=== PATIENT | female | born 1990 | race Caucasian/White ===

== ENCOUNTER 2020-09-24 10:22 | Day surgery (SDC) | payer OTHER, SELFPAY ==
--- NOTE | ~2020-09-24 | FL_ITS ---
PROCEDURE: XR LUMBAR PUNCTURE CLINICAL INFORMATION: Pseudotumor cerebri. COMPARISON: None TECHNIQUE: Following explaining fluoroscopy-guided lumbar puncture procedure, benefits and risk patient was placed prone on fluoroscopy table and low back area was cleaned and draped in usual sterile manner. 1% lidocaine was injected at puncture site. A 20-gauge 6 inch needle was then inserted from a left-sided approach intrathecally at the L3-L4 disc level. After observing CSF return patient was quickly placed in left lateral decubitus view and opening pressure was obtained. Subsequently CSF was collected in 4 test tubes. Postprocedure stylet was reintroduced and needle withdrawn. Complete hemostasis achieved at puncture site. Patient tolerated procedure extremely well. Simple Band-Aid applied postprocedure. FINDINGS: On 2 images obtained through the lumbar spine there is maintained lumbar lordosis. The vertebral heights, alignment and disc heights are normal. No visible acute fracture, dislocation or lytic process seen. The opening CSF pressure measured 31 mL of water. Approximately 19 mL of clear CSF fluid was collected in 4 test tubes. Initially the fluid was hemorrhagic and cleared by the last image. FLUOROSCOPY TIME: 0.3 minutes. DOSE AREA PRODUCT: 6.007 uGy-m2 (microgray-meter squared). FL/FL guided lumbar puncture LP IMPRESSION: Successful fluoroscopy-guided lumbar puncture performed. Opening CSF pressure measured 31 cm of water.
[2020-09-24 09:53] VITALS: BMI 41.5
[2020-09-24 09:59] LABS: MANUAL DIFF FLAG NO
[2020-09-24 10:01] LABS: Basophils Percent Auto 0.3 % (0-2); Eosinophils Absolute Auto 0.1 X10*3/uL (0.0-0.4); Eosinophils Percent Auto 1.6 % (0-4); Imm Gran Abs Auto 0.01 X10*3/uL (0.00-0.03); Imm Gran Pct Auto 0.1 % (0.0-0.4); Lymphocytes Absolute Auto 2.7 X10*3/uL (1.2-4.9); Lymphocytes Percent Auto 35.9 % (20-40); Mean Corpuscular HGB Conc 34.1 g/dl (31.0-35.0); Mean Corpuscular Hemoglobin 28.7 pg (27.0-33.0); Mean Corpuscular Volume 84.2 fL (80-98); Mean Platelet Volume 9.9 fL (9.4-12.3); Monocytes Absolute Auto 0.3 X10*3/uL (0.1-1.2); Monocytes Percent Auto 4.5 % (2-11); Neutrophils Absolute Auto 4.3 X10*3/uL (2.0-8.3); Neutrophils Percent Auto 57.6 % (45-73); Platelet Count 236 X10*3/uL (160-400); Red Blood Count 4.87 X10*6/uL (4.20-5.50); Red Cell Distribution Width 12.3 % (11.0-16.0); White Blood Count 7.4 X10*3/uL (4.8-10.8)
[2020-09-24 10:08] LABS: Prothrombin Time 11.7 SEC (9.9-13.0)
[2020-09-24 10:11] LABS: Partial Thromboplastin Time 35.3 SEC (24.1-38.0)
[2020-09-24 10:52] LABS: UPreg QC Valid YES
[2020-09-24 10:53] LABS: Urine Pregnancy NEGATIVE (NEGATIVE)
[2020-09-24 12:14] VITALS: BP 121/73; PULSE 79; RESP 18; O2SAT 99
[2020-09-24 12:44] VITALS: BP 120/74; PULSE 77; RESP 18; O2SAT 100
[2020-09-24 13:15] VITALS: BP 112/70; PULSE 77; RESP 18; O2SAT 100
[2020-09-24] MEDS: Acetaminophen Oral Liquid 650 MG/20.3 ML SOLUTION 975 MG PO (13:15)
[2020-09-24 13:20] LABS: CSF Tube # 1
[2020-09-24 13:21] LABS: CSF Appearance Bloody
[2020-09-24 13:30] LABS: Glucose CSF 57 mg/dL; Total Protein CSF 51.5 mg/dL (15-45)
[2020-09-24 13:44] VITALS: BP 117/74; PULSE 85; RESP 20; O2SAT 100
[2020-09-24 13:59] LABS: Appearance CSF HAZY; CSF Tube # 4; Color CSF COLORLESS; Neutrophils CSF 4 %; Red Blood Cell CSF 697 MM*3; White Blood Cell CSF 2 MM*3
[2020-09-24 14:00] LABS: CSF Monos 20 %; Lymphocytes CSF 76 %
[2020-09-24 14:42] VITALS: BP 124/78; PULSE 79; RESP 18; TEMP 36.8; O2SAT 100
== END 2020-09-24 15:14 | disposition home or self-care (01) ==
PROVIDERS: Psychiatry & Neurology Neurology; Visit Provider Radiology Diagnostic Radiology
PROC: 009U3ZZ Drainage of Spinal Canal, Percutaneous Approach (ICD-10-PCS; CPT 62270; principal; 2020-09-24 11:00)
DX: G93.2 Benign intracranial hypertension (principal); G43.909 Migraine, unspecified, not intractable, without status migrainosus; H53.8 Other visual disturbances; F41.9 Anxiety disorder, unspecified; F90.9 Attention-deficit hyperactivity disorder, unspecified type; Z79.899 Other long term (current) drug therapy; Z88.2 Allergy status to sulfonamides; Z91.040 Latex allergy status; Z88.8 Allergy status to other drugs, medicaments and biological substances
CPT/HCPCS: 36415; 62328; 81025; 82945; 84157; 85025; 85610; 85730; 87015; 87070; 87205; 89051

== ENCOUNTER 2021-01-12 09:26 | Day surgery (SDC) | payer OTHER, SELFPAY ==
--- NOTE | ~2021-01-12 | FL_ITS ---
EXAMINATION: XR LUMBAR PUNCTURE CLINICAL INFORMATION: Pseudotumor cerebri. COMPARISON: Fluoroscopy-guided lumbar puncture 09/24/2020. TECHNIQUE: Following explaining fluoroscopy-guided lumbar puncture procedure, benefits and risks, a written consent was obtained. Patient was placed prone on fluoroscopy table and low back area was cleaned and draped in the usual sterile manner after placing a marker at the L3-L4 disc level. 1% lidocaine was injected at the puncture site. A 20-gauge 6 inch long needle was inserted from the skin intrathecally at the L3-L4 disc level. After observing fluid return, patient was quickly placed into a left lateral decubitus view and opening CSF pressure was obtained. Subsequently fluid was collected in 4 test tubes and sent to lab. The stylet was reintroduced and needle withdrawn. Complete hemostasis was achieved at the puncture site. Sterile Band-Aid was applied postprocedure. Patient tolerated procedure extremely well. FINDINGS: 2 images of lumbar spine were obtained and reveal normal vertebral heights and alignment. The disc heights are normal. The opening CSF pressure was high and measured 29 cm of water. Approximately 16 mL of clear CSF fluid was obtained. FLUOROSCOPY TIME: 0.3 minutes. DOSE AREA PRODUCT: 21.5 uGy-m2 (microgray-meter squared). IMAGES: 2. FL/FL guided lumbar puncture LP IMPRESSION: Successful fluoroscopy-guided lumbar puncture performed with elevated CSF pressure of 29 cm of water.
[2021-01-12 10:56] VITALS: BMI 41.5
[2021-01-12 11:01] LABS: MANUAL DIFF FLAG NO
[2021-01-12 11:05] LABS: Basophils Percent Auto 0.3 % (0-2); Eosinophils Absolute Auto 0.1 X10*3/uL (0.0-0.4); Eosinophils Percent Auto 0.7 % (0-4); Hematocrit 43.1 % (37-47); Hemoglobin 14.8 g/dl (12.0-16.0); Imm Gran Abs Auto 0.03 X10*3/uL (0.00-0.03); Imm Gran Pct Auto 0.3 % (0.0-0.4); Lymphocytes Absolute Auto 2.2 X10*3/uL (1.2-4.9); Lymphocytes Percent Auto 23.1 % (20-40); Mean Corpuscular HGB Conc 34.3 g/dl (31.0-35.0); Mean Corpuscular Hemoglobin 28.7 pg (27.0-33.0); Mean Corpuscular Volume 83.7 fL (80-98); Mean Platelet Volume 9.7 fL (9.4-12.3); Monocytes Absolute Auto 0.4 X10*3/uL (0.1-1.2); Monocytes Percent Auto 4.5 % (2-11); Neutrophils Absolute Auto 6.8 X10*3/uL (2.0-8.3); Neutrophils Percent Auto 71.1 % (45-73); Platelet Count 261 X10*3/uL (160-400); Red Blood Count 5.15 X10*6/uL (4.20-5.50); Red Cell Distribution Width 12.5 % (11.0-16.0); White Blood Count 9.6 X10*3/uL (4.8-10.8)
[2021-01-12 11:14] LABS: Prothrombin Time 11.8 SEC (9.9-13.0)
[2021-01-12 11:17] LABS: Partial Thromboplastin Time 36.5 SEC (24.1-38.0)
[2021-01-12 11:17] LABS: UPreg QC Valid YES; Urine Pregnancy NEGATIVE (NEGATIVE)
[2021-01-12 12:45] VITALS: BP 127/81; PULSE 75; RESP 18; TEMP 36.9; O2SAT 98
[2021-01-12 13:00] VITALS: BP 126/80; PULSE 78; RESP 18; O2SAT 99
[2021-01-12 13:12] LABS: CSF Appearance Clear, Colorless; CSF Tube # 1
[2021-01-12 13:15] VITALS: BP 121/81; PULSE 75; RESP 18; O2SAT 98
[2021-01-12 13:22] LABS: Glucose CSF 52 mg/dL; Total Protein CSF 45.9 mg/dL (15-45)
[2021-01-12 13:44] LABS: Color CSF COLORLESS; Red Blood Cell CSF 1 MM*3; White Blood Cell CSF 2 MM*3
[2021-01-12 13:45] VITALS: BP 119/84; PULSE 73; RESP 18; O2SAT 99
[2021-01-12 13:45] LABS: Appearance CSF CLEAR; CSF Monos 20 %; CSF Tube # 4; Lymphocytes CSF 80 %
[2021-01-12 14:15] VITALS: BP 128/79; PULSE 86; RESP 18; TEMP 37.1; O2SAT 99
== END 2021-01-12 14:50 | disposition home or self-care (01) ==
PROVIDERS: Psychiatry & Neurology Neurology; Visit Provider Radiology Diagnostic Radiology
PROC: 009U3ZZ Drainage of Spinal Canal, Percutaneous Approach (ICD-10-PCS; CPT 62270; principal; 2021-01-12 11:00)
DX: G93.2 Benign intracranial hypertension (principal); G43.909 Migraine, unspecified, not intractable, without status migrainosus; F41.9 Anxiety disorder, unspecified; F90.9 Attention-deficit hyperactivity disorder, unspecified type; Z79.899 Other long term (current) drug therapy; Z88.2 Allergy status to sulfonamides
CPT/HCPCS: 36415; 62328; 81025; 82945; 84157; 85025; 85610; 85730; 87015; 87070; 87205; 89051